=== PATIENT | male | born 1960 | race Caucasian/White ===

== ENCOUNTER 2020-06-26 15:05 | Inpatient (IN) | payer SELFPAY ==
[2020-06-26 15:19] VITALS: BP 212/102; PULSE 66; RESP 18; TEMP 36.7; O2SAT 100; BMI 22.6
--- NOTE | 2020-06-26 15:28 | W.ED.PSYCH ---
HPI - Psych General: Chief Complaint: Psychiatric Symptoms Stated Complaint: SI, AUDITORY HALLUCINATIONS Time Seen by Provider: 06/26/20 15:19 Source: patient and EMS Mode of arrival: EMS Limitations: no limitations History of Present Illness: HPI Narrative: 59-year-old male states he has been having increasing depression and suicidality. Patient states that he feels like dying. He states he also been having auditory hallucinations recently. 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 Patient's been homeless for years and states he does not see a PCP. Patient is hypertensive here and states he has not been to a physician doctor in years and does not know if he has chronic high blood pressure. He has no medical complaints at this time. MD complaint: suicidal ideation Associated symptoms: Reports auditory hallucinations and depression Review of Systems Const: Denies: fever(s), chills, body aches or change in appetite Eyes: Denies: blurry vision or eye discomfort ENMT: Denies: throat pain or dental pain Card: Denies: chest pain Resp: Denies: dyspnea GI: Denies: abdominal pain, nausea, vomiting or diarrhea : Denies: dysuria Musc: Denies: neck pain or back pain Skin/Breast: Denies: rash Neuro: Denies: headache(s) Psych: Reports: depression and auditory hallucinations Lazarus/Lymph: Denies: easy bruising All/Imm: Denies: urticaria Physical Exam Const: COMMON NORMALS: no acute distress and patient oriented x3 GENERAL APPEARANCE: disheveled HENMT: COMMON NORMALS: normocephalic and atraumatic HEAD & SCALP: normocephalic and atraumatic Eye: COMMON NORMALS: Equal, round and reactive pupils present and EOMs intact bilaterally PUPIL: Yes Equal, round and reactive pupils present Neck/C-Spine: COMMON NORMALS: full ROM and supple Chest: COMMONS NORMALS: normal inspection of the chest and normal palpation of entire chest wall Resp: COMMON NORMALS: normal respiratory effort, No retractions, No use of accessory muscles and clear to auscultation bilaterally AUSCULTATION: clear to auscultation bilaterally Cardio: COMMON NORMALS: regular rate, regular rhythm and No murmurs present (Cardio) RATE: regular rate RHYTHM: regular rhythm GI: COMMON NORMALS: Normal to inspection, nondistended, normoactive bowel sounds present, Soft to palpation, non-tender and no masses PALPATION: Yes Soft to palpation Extremity: COMMON NORMALS: normal to inspection and full ROM Neuro: COMMON NORMALS: patient oriented x3, moves all extremities and no focal motor deficits Psych: COMMON NORMALS: mental status grossly normal, Normal thought process present and cooperative THOUGHT PROCESS: Normal thought process present THOUGHT CONTENT: Yes Suicidality present and Yes Hallucination(s) present Skin: COMMON NORMALS: no rashes or lesions noted and no wounds GENERAL SKIN EXAM: no rashes or lesions noted MDM - Psych MDM Narrative: Medical decision making narrative: Patient presents here with suicidal ideation along with auditory hallucinations. Patient is voluntarily wanting to be admitted. Patient is medically cleared. He was hypertensive when he arrived and is likely chronic in nature. I spoke to psychiatrist and will admit. I gave patient hydralazine and lisinopril his blood pressure is now 141/76. His blood pressure spike was asymptomatic and I believe it is chronic. Lab Data: Labs: Lab Results 06/26/20 06/26/20 06/26/20 Range/Units 15:45 15:49 15:49 WBC 10.5 H (4.0-10.0) 10^3/ uL RBC 5.76 H (4.1-5.3) 10^6/u L Hgb 15.3 (11.7-16.6) g/dL Hct 49.1 (42.0-52.0) % MCV 85.2 (80-94) fL MCH 26.6 L (28.0-34.0) pg MCHC 31.2 (30.0-36.0) g/dL RDW 15.9 H (12.1-15.1) % Plt Count 176 (130-400) 10^3/c mm MPV 10.8 H (7.4-10.4) fL Neut % (Auto) 78.3 % Lymph % (Auto) 17.5 % [place] % (Auto) 3.1 % Eos % (Auto) 0.5 % Baso % (Auto) 0.3 % Neut # (Auto) 8.21 H (1.8-7.7) 10^3/u L Lymph # (Auto) 1.8 (0.8-4.8) 10^3/u L [place] # (Auto) 0.3 (0.2-0.9) 10^3/u L Eos # (Auto) 0.1 (0.0-0.8) 10^3/u L Baso # (Auto) 0.0 (0.0-0.1) 10^3/u L Nucleated RBC % (a uto) 0 % Nucleated RBCs # 0.0 /100WBC Sodium 135 L (136-145) mmol/L Potassium 5.5 H (3.5-5.1) mmol/L Chloride 102 (98-107) mmol/L Carbon Dioxide 22 (22-29) mmol/L Anion Gap 16.5 (5-19) BUN 7 (6-20) mg/dL Creatinine 0.8 (0.7-1.2) mg/dL GFR Calculation 99.3 (90-130) mL/min Glucose 91 (65-115) mg/dL Calculated Osmolal ity 278 L (285-295) mOsm/k g Calcium 9.5 (8.5-10.5) mg/dL Total Bilirubin 0.4 (0.15-1.2) mg/dL AST 17 (0-40) U/L ALT 9 (0-41) U/L Alkaline Phosphata se 69 (40-130) IU/L Total Protein 8.2 (6.6-8.7) g/dL Albumin 4.6 (3.5-5.2) g/dL Globulin 3.6 (1.3-4.6) g/dL Salicylates < 0.3 L (3-10) mg/dL Urine Opiates Scre en Negative (Negative) ng/mL Acetaminophen < 5.0 L (10-30) ug/mL Ur Barbiturates Sc reen Negative (Negative) ng/mL Ur Phencyclidine S crn Negative (Negative) ng/mL Ur Amphetamines Sc reen Negative (Negative) ng/mL U Benzodiazepines Scrn Negative (Negative) ng/mL Urine Cocaine Scre en Negative (Negative) ng/mL U Marijuana (THC) Screen Positive H (Negative) ng/mL Ethyl Alcohol < 10 (0-10) mg/dL Coding Level of Care Code ED Process Improvement Engineer for Chg Fwd Exam Comprehensive
[2020-06-26 15:53] LABS: Basophils % 0.3 %; Eosinophils # 0.1 10^3/uL (0.0-0.8); Eosinophils % 0.5 %; Hematocrit 49.1 % (42.0-52.0); Hemoglobin 15.3 g/dL (11.7-16.6); Lymphocytes # 1.8 10^3/uL (0.8-4.8); Lymphocytes % 17.5 %; Mean Corpuscular HGB Conc 31.2 g/dL (30.0-36.0); Mean Corpuscular Hemoglobin 26.6 pg (28.0-34.0); Mean Corpuscular Volume 85.2 fL (80-94); Mean Platelet Volume 10.8 fL (7.4-10.4); Monocytes # 0.3 10^3/uL (0.2-0.9); Monocytes % 3.1 %; Neutrophils # 8.21 10^3/uL (1.8-7.7); Neutrophils % 78.3 %; Nucleated Red Blood Cells % 0 %; Platelet Count 176 10^3/cmm (130-400); Red Blood Count 5.76 10^6/uL (4.1-5.3); Red Cell Distribution Width 15.9 % (12.1-15.1); White Blood Count 10.5 10^3/uL (4.0-10.0)
[2020-06-26 16:00] VITALS: BP 178/89; PULSE 64; RESP 16; O2SAT 99
[2020-06-26] MEDS: lisinopril 10 mg Tablet 20 MG PO (16:03)
[2020-06-26] MEDS: LORazepam 2 mg Tablet PO (16:03)
[2020-06-26] MEDS: hyDRALAzine 20 mg/mL INJ 1 mL 10 MG IVP (16:07)
[2020-06-26 16:09] LABS: Amphetamines Screen Urine Negative (Negative); Barbiturates Screen Urine Negative (Negative); Benzodiazepines Screen Urine Negative (Negative); Cocaine Screen Urine Negative (Negative); Opiate Screen Urine Negative (Negative); PCP Screen Urine Negative (Negative); THC Screen Urine Positive (Negative)
--- NOTE | 2020-06-26 16:09 | PC.NURSE ---
1:1 SITTER AT BEDSIDE WITH PT.
[2020-06-26 16:13] LABS: Alanine Aminotransferase 9 U/L (0-41); Albumin Level 4.6 g/dL (3.5-5.2); Alkaline Phosphatase 69 IU/L (40-130); Anion Gap 16.5 (5-19); Aspartate Amino Transferase 17 U/L (0-40); Blood Urea Nitrogen 7 mg/dL (6-20); Calcium 9.5 mg/dL (8.5-10.5); Carbon Dioxide 22 mmol/L (22-29); Chloride 102 mmol/L (98-107); Creatinine Clr Calc Pharmacy 90.6573; Globulin 3.6 g/dL (1.3-4.6); Glomerular Filtration Rate 99.3 mL/min (90-130); Glucose 91 mg/dL (65-115); Osmolality Calculated 278 mOsm/kg (285-295); Potassium 5.5 mmol/L (3.5-5.1); Sodium 135 mmol/L (136-145); Total Bilirubin 0.4 mg/dL (0.15-1.2); Total Protein 8.2 g/dL (6.6-8.7)
[2020-06-26 16:15] LABS: Acetaminophen < 5.0 ug/mL (10-30); Alcohol Level < 10 mg/dL (0-10); Salicylate < 0.3 mg/dL (3-10)
[2020-06-26 17:00] VITALS: BP 127/76; PULSE 73; RESP 16; O2SAT 96
[2020-06-26 17:06] VITALS: BP 137/87; PULSE 65; RESP 20; TEMP 37.1; O2SAT 99
--- NOTE | 2020-06-26 19:50 | PC.NURSE ---
BP is hypotensive. Alert and oriented. Encouraging PO fluids.
[2020-06-26 20:12] VITALS: BP 110/70; PULSE 71; RESP 20; TEMP 36.2; O2SAT 99
--- NOTE | 2020-06-26 20:22 | PC.NURSE ---
pt being observed closely due to bp issues both in the ER and here on the unit.
[2020-06-27 06:00] VITALS: BP 110/68; PULSE 63; RESP 19; TEMP 37; O2SAT 98
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
[2020-06-27 13:33] VITALS: BP 123/76; PULSE 62; RESP 18; TEMP 36.8; O2SAT 98
[2020-06-27 19:38] VITALS: BP 138/64; PULSE 60; RESP 17; TEMP 37.1; O2SAT 89
[2020-06-27] MEDS: OLANZapine 5 mg ODT PO (20:45)
[2020-06-28 06:00] VITALS: BP 181/95; PULSE 62; RESP 16; TEMP 36.4; O2SAT 97
[2020-06-28 13:16] VITALS: BP 199/88; PULSE 49; RESP 18; TEMP 36.6; O2SAT 100
--- NOTE | 2020-06-28 14:05 | P.PN_ITS ---
Subjective NPU Subjective: Interval history: The patient says he is not doing well. His auditory hallucinations take the form of voices which argue with each other as to whether he should live or . He is not on a large dose of antipsychotic, which will be increased. Also, he is not on an antidepressant and he is depressed. This has been such a longstanding problem that, failing efforts at pharmacotherapy and millieu, which latter is less likely to be helpful in light of his profound hearing impairment, I would like to at least consider ketamine as an alternative approach. This man is desperately depressed and suicidal. Medications: Reviewed: Yes Medication Review Details: Current Medications Acetaminophen (Tylenol) 650 mg PO Q4H PRN PRN Reason: MILD PAIN Benztropine Mesylate (Cogentin) 1 mg PO BID PRN PRN Reason: Mild Extrapyramidal symptoms Camphor/Menthol/Phenol (Blistex) 1 applic TOPICAL Q1H PRN PRN Reason: DRYNESS Diphenhydramine HCl (Benadryl) 50 mg IM ONCE PRN PRN Reason: Severe Extrapyramidal Symptoms Diphenhydramine HCl (Benadryl) 50 mg IM Q4H PRN PRN Reason: Severe Aggression Haloperidol (Haldol) 5 mg PO Q4H PRN PRN Reason: AGITATION Haloperidol Lactate (Haldol Inj) 5 mg IM Q4H PRN PRN Reason: Severe Aggression Hydroxyzine Pamoate (Vistaril) 50 mg PO Q6H PRN PRN Reason: ANXIETY Loperamide HCl (Imodium Capsule) 2 mg PO Q6H PRN PRN Reason: DIARRHEA Lorazepam (Ativan) 2 mg IM Q4H PRN PRN Reason: Severe Aggression Nicotine (Nicoderm 21 Mg Patch) 1 patch TRANSDERMA DAILY PRN PRN Reason: NICOTINE WITHDRAWAL Nicotine Polacrilex (Nicorette) 2 mg BUCCAL Q2H PRN PRN Reason: NICOTINE WITHDRAWAL Non-Formulary Medication (Naproxen Sodium [Aleve]) 220 mg PO PRN PRN PRN Reason: PAIN Olanzapine (Zyprexa Zydis) 5 mg PO Q4H PRN PRN Reason: Agitation/Psychosis Olanzapine (Zyprexa Zydis) 10 mg PO BEDTIME ASIF Ondansetron HCl (Zofran) 4 mg PO Q6H PRN PRN Reason: NAUSEA AND VOMITING Sertraline HCl (Zoloft) 50 mg PO DAILY ASIF Trazodone HCl (Desyrel) 50 mg PO BEDTIME PRN PRN Reason: SLEEP Mental Status Exam MSE Comments: This is an obviously physically impaired male who presents at his stated age. He is a bit scruffy in keeping with his homeless status. Mood is despondent and affect is flat. Thought processes, however, what little I could elicit, are integrated and free of racing, blocking or looseness of association. Speech is of normal rate and volume, without dysarthria, aprosody or pressure. Cognitive functions appear to be within normal range and insight and judgment appear to be intact. They were all di fficult to assess in light of the fact that he is quite hearing impaired and could barely hear me. There were no odd behaviors. He acknowledges suicidal thoughts but has no intent or impulse to hurt himself or anyone here on the unit. Vitals/I&O/Wt Last Vital Signs Temp 97.8 F 06/28/20 13:16 Pulse 49 L 06/28/20 13:16 Resp 18 06/28/20 13:16 BP 199/88 06/28/20 13:16 Pulse Ox 100 06/28/20 13:16 Weight last 48 hrs Weight 140 lb Data NPU : 06/26/20 15:49 06/26/20 15:49 A&P Assessment and plan (1) Major depression with psychotic features: Involvement in [facility]. Monitoring, management of antipsychotic and antidepressant pharmacotherapy. Aggressive discharge planning Status: Acute Involuntary Hold Information 96 Hour Hold: 96 Hour Involuntary Admission: No Attestations NPU Medical Necessity Statement*: I anticipate 7-10 midnights additional hospitalization. Time Spent in Patient Care: Greater than 35 minutes (>than 50% of time spent in counselling and/or direct pt care on unit) . 50 minutes Coding Level of Care Code Acute Paediatrician for Cristpoher Mc Diagnoses Major depression with psychotic features F32.3
[2020-06-28 20:05] VITALS: BP 180/75; PULSE 53; RESP 16; TEMP 36.7; O2SAT 100
[2020-06-28] MEDS: OLANZapine 5 mg ODT 10 MG PO (21:19)
[2020-06-29 06:00] VITALS: BP 167/2; PULSE 52; RESP 17; TEMP 36.7; O2SAT 98
[2020-06-29] MEDS: sertraline 50 mg Tablet PO (08:40)
--- NOTE | 2020-06-29 10:01 | P.PN_ITS ---
Subjective NPU Subjective: Interval history: The patient freely discusses his social circumstances which in fact are somewhat difficult. He needs sees no solutions to his problems of being unemployed, and over thousand miles from his home. He has no social support in this area. He has no way of getting back to his home in [place]. He feels like he can still work and would like to get a job. At the same time, he feels desponded and that there really is no hope for him. He is tolerating the medication well. Medications: Medication Review Details: Current Medications Acetaminophen (Tylenol) 650 mg PO Q4H PRN PRN Reason: MILD PAIN Benztropine Mesylate (Cogentin) 1 mg PO BID PRN PRN Reason: Mild Extrapyramidal symptoms Camphor/Menthol/Phenol (Blistex) 1 applic TOPICAL Q1H PRN PRN Reason: DRYNESS Diphenhydramine HCl (Benadryl) 50 mg IM ONCE PRN PRN Reason: Severe Extrapyramidal Symptoms Diphenhydramine HCl (Benadryl) 50 mg IM Q4H PRN PRN Reason: Severe Aggression Haloperidol (Haldol) 5 mg PO Q4H PRN PRN Reason: AGITATION Haloperidol Lactate (Haldol Inj) 5 mg IM Q4H PRN PRN Reason: Severe Aggression Hydroxyzine Pamoate (Vistaril) 50 mg PO Q6H PRN PRN Reason: ANXIETY Loperamide HCl (Imodium Capsule) 2 mg PO Q6H PRN PRN Reason: DIARRHEA Lorazepam (Ativan) 2 mg IM Q4H PRN PRN Reason: Severe Aggression Nicotine (Nicoderm 21 Mg Patch) 1 patch TRANSDERMA DAILY PRN PRN Reason: NICOTINE WITHDRAWAL Nicotine Polacrilex (Nicorette) 2 mg BUCCAL Q2H PRN PRN Reason: NICOTINE WITHDRAWAL Non-Formulary Medication (Naproxen Sodium [Aleve]) 220 mg PO PRN PRN PRN Reason: PAIN Olanzapine (Zyprexa Zydis) 5 mg PO Q4H PRN PRN Reason: Agitation/Psychosis Olanzapine (Zyprexa Zydis) 10 mg PO BEDTIME ASIF Ondansetron HCl (Zofran) 4 mg PO Q6H PRN PRN Reason: NAUSEA AND VOMITING Sertraline HCl (Zoloft) 50 mg PO DAILY ASIF Trazodone HCl (Desyrel) 50 mg PO BEDTIME PRN PRN Reason: SLEEP Mental Status Exam MSE Comments: Mental Status Exam: The patient is alert interpersonally engaged man appearing approximately his stated age. Eye contact is good. He is believed to be a reliable informant to the best of his ability. Information provided is internally consistent and consistent with that in the chart. Appearance: hygiene is fair; no gross neurological deficits., gait is unremark able; AIMS=0 Speech: Speech is of normal rate and rhythm and easily understood. Thought processes: Thought processes are abstract. Judgment is adequate for safety. Associations: intact Psychotic processes: There is no indication of guarding or paranoia. There is no attention to the internal stimuli. Auditory and visual hallucinations are denied. Judgment: Insight is fair. Problem solving skills are adequate for safety. Orientation: The patient is oriented to person, place time and situation. Memory: no deficits noted in immediate, intermediate, or remote spheres. Attention: The patient is alert and interpersonally engaged. Language: Verbalizations are coherent. Fund of knowledge: Fund of knowledge is adequate. Affect/Mood: Affect is consistent with a depressed mood. pt denies suicidal ideation Affective range appropriate. Psychosis: perception unimpaired except through cognitive distortion; reality testing intact. Cognition: Patient Appearance: Disheveled/Poor Hygiene Level of Consciousness: Awake, Alert, Appropriate and Follows Commands Patient Cognition Impaired: Yes Ability to Follow Directions: Fair Patient Orientation (long list): Person, Name, Age and Birthday Comprehension Ability: Moderate Impairment Hallucination Type: Auditory and Visual Delusion Description: Not Present Thought Process: Appropriate Affect: Affect Description: Appropriate Depressive Symptoms: Feelings of Worthlessness, Hopelessness, Low Self Esteem and Unhappiness Behavior: Patient Behavior: Appropriate Speech Pattern: Clear Vitals/I&O/Wt Last Vital Signs Temp 98.1 F 06/29/20 06:00 Pulse 52 L 06/29/20 06:00 Resp 17 06/29/20 06:00 BP 167/2 06/29/20 06:00 Pulse Ox 98 06/29/20 06:00 Data NPU : 06/26/20 15:49 06/26/20 15:49 A&P Assessment and plan (1) Major depression with psychotic features: Involvement in [facility]. Monitoring, management of antipsychotic and antidepressant pharmacotherapy. Aggressive discharge planning Status: Acute Additional A&P Information Diagnoses: Major depression?single episode, severe Assessment: The hallucinations that he is reporting are more likely to be his internal thought processes unknown expression of his feelings of hopelessness and being overwhelmed as part of his social situation and depression. He was encouraged to maintain participation in the treatment program especially with regard to medications. He was encouraged to have some patients into the therapeutic efficacy of the medication and his ability to find solutions to his problems that he may not be able to see at this time. Given his financial circumstances, treatment with ketamine or transcranial magnetic stimulation, which would be effective interventions, are likely out of his reach. It is also noted that there is no provider for these treatments within a 100 mile radius. Treatment plan: Due to the psychiatric conditions and treatment listed in the Assessment and Plan - the patient requires continued hospitalization. Will provide a safe and therapeutic environment for patient.. Will continue inpatient treatment to allow for medication adjustment and monitoring. Will continue q15 min safety checks. Hospital day #3: Continue sertraline 50 mg daily. Will replace the Zyprexa 10 mg at bedtime with risperidone 1 mg at bedtime and trazodone 100 mg at bedtime. Monitor patient's mood, sleep, appetite, and behavior closely. Encourage patient to participate in individual and group therapeutic sessions on the [place]. Estimated length of stay 5 days The expected benefits and potential side effects of patient's psychiatric medications were discussed with the patient. The patient understands and consents to treatment.CRITERIA FOR DISCHARGE: stable on medications and no longer an imminent risk Involuntary Hold Information 96 Hour Hold: 96 Hour Involuntary Admission: No Attestations NPU Medical Necessity Statement*: Patient will remain in the hospital another 2-4 nights for assessment of medication efficacy and tolerability. Coding Level of Care Code Acute Pay Station Collector for Cristopher Mc Diagnoses Major depression with psychotic features F32.3
[2020-06-29 12:39] VITALS: BP 167/2; PULSE 52; RESP 17; TEMP 36.7; O2SAT 98
[2020-06-29 12:43] VITALS: BP 167/2; PULSE 52; RESP 17; TEMP 36.7; O2SAT 98
--- NOTE | 2020-06-29 12:49 | P.DS_ITS ---
Diagnoses at Discharge Discharge Diagnosis (1) Major depression with psychotic features: Status: Resolved Problem details: This is not a permanent situation and may be treatable Reason for Visit Reason for Visit: SI, AUDITORY HALLUCINATIONS Brief History: YUMI MUNOZ is a 59 year old male who says he has been having increasing depression and suicidality. Patient states that he feels like dying. He has also been having auditory hallucinations for the last 2-1/2 weeks. There are several voices, none of whom he recognizes. He had a similar psychotic break in 1994. He does not recall any treatment that was helpful and has not been on an antipsychotic. Patient's been homeless for years and states he does not see a PCP. Hospital Course Hospital Course DG: Major depression with psychotic features: Admission evaluation: The patient says he is not doing well. His auditory hallucinations take the form of voices which argue with each other as to whether he should live or . He is not on a large dose of antipsychotic, which will be increased. Also, he is not on an antidepressant and he is depressed. This has been such a longstanding problem that, failing efforts at pharmacotherapy and millieu, which latter is less likely to be helpful in light of his profound hearing impairment, I would like to at least consider ketamine as an alternative approach. This man is desperately depressed and suicidal. Hospital day #3: The patient freely discusses his social circumstances which in fact are somewhat difficult. He needs sees no solutions to his problems of being unemployed, and over thousand miles from his home. He has no social support in this area. He has no way of getting back to his home in [place]. He feels like he can still work and would like to get a job. At the same time, he feels desponded and that there really is no hope for him. He is tolerating the medication well. Hospital day #4: Assessment: The hallucinations that he is reporting are more likely to be his internal thought processes unknown expression of his feelings of hopelessness and being overwhelmed as part of his social situation and depression. He was encouraged to maintain participation in the treatment program especially with regard to medications. He was encouraged to have some patients into the therapeutic efficacy of the medication and his ability to find solutions to his problems that he may not be able to see at this time. Given his financial circumstances, treatment with ketamine or transcranial magnetic stimulation, which would be effective interventions, are likely out of his reach. It is also noted that there is no provider for these treatments within a 100 mile radius. PLAN: Continue sertraline 50 mg daily. Will replace the Zyprexa 10 mg at bedtime with risperidone 1 mg at bedtime and trazodone 100 mg at bedtime. Patient later was in agreement to placement at the [facility] homeless program with discharge ALVARO to facilitate before weekend. Involuntary Hold Information 96 Hour Hold: 96 Hour Involuntary Admission: No Mental Status Exam MSE Comments: Discharge Mental Status Exam: Appearance: hygiene is good; no gross neurological deficits., gait is unremarkable; AIMS=0 Speech: Speech is of normal rate and rhythm and easily understood. Thought processes: Thought processes are abstract. Judgment is adequate for safety. Associations: intact Psychotic processes: There is no indication of guarding or paranoia. There is no attention to the internal stimuli. Auditory and visual hallucinations are denied. Judgment: Insight is fair. Problem solving skills are adequate for safety. Orientation: The patient is oriented to person, place time and situation. Memory: no deficits noted in immediate, intermediate, or remote spheres. Attention: The patient is alert and interpersonally engaged. Language: Verbalizations are coherent. Fund of knowledge: Fund of knowledge is adequate. Affect/Mood: Affect is consistent with a euthymic mood. denied suicidal ideation Affective range is appropriate. Psychosis: perception unimpaired except through cognitive distortion; reality testing intact. Discharge Data Vitals: Last Vital Signs Temp 98.1 F 06/29/20 12:43 Pulse 52 L 06/29/20 12:43 Resp 17 06/29/20 12:43 BP 167/2 06/29/20 12:43 Pulse Ox 98 06/29/20 12:43 Discharge Plan Discharge Patient Disposition: Home Condition: Stable Prescriptions: New trazodone 100 mg Tablet 100 mg PO BEDTIME Qty: 30 RF: 4 sertraline 50 mg Tablet 50 mg PO DAILY Qty: 30 RF: 4 risperidone 1 mg Tablet 1 mg PO BEDTIME Qty: 30 RF: 4 Naproxen Sodium 220 mg PO PRN Qty: 30 RF: 1 Discontinued naproxen sodium [Aleve] 220 mg Tablet 1,100 mg PO PRN RF: 0 Discharge Orders: Discharge Order (Routine); Ordered 06/29/20 Ordered By: Toney Colon Referrals: [facility] [Other] (this is the senior living where you can stay at least stay for 30 days. They do offer assistance to help with housing needs. ) Patient Instructions: Naproxen (By mouth), Trazodone (By mouth), Sertraline (By mouth), Risperidone (By mouth), Depression (DC), Anxiety (DC) Discharge Attestations NPU Time Spent in Discharge Care*: greater than 30 min Coding Level of Care Code Acute Litigation Manager for Cristopher Mc Diagnoses Major depression with psychotic features F32.3
== END 2020-06-29 14:21 | disposition home or self-care (01) | DRG 885 ==
LOC: ER 16:51 → NP 16:53
PROVIDERS: Emergency Medicine; Admitting Provider Psychiatry & Neurology Psychiatry; Emergency Provider Psychiatry & Neurology Psychiatry; Visit Provider Psychiatry & Neurology Psychiatry
DX: F32.3 Major depressive disorder, single episode, severe with psychotic features (principal); R45.851 Suicidal ideations
CPT/HCPCS: 12345; 36415; 80053; 80306; 80307; 85025; 96375; 99284; J0360

== ENCOUNTER 2020-08-09 10:30 | Inpatient (IN) | payer SELFPAY ==
[2020-08-09 10:48] VITALS: BP 136/84; PULSE 71; RESP 18; TEMP 36.6; O2SAT 99; BMI 21.7
--- NOTE | 2020-08-09 11:12 | ED_ITS ---
HPI - Back Pain/Injury General: Chief Complaint: Back Pain/Injury Stated Complaint: back and knee pain Time Seen by Provider: 08/09/20 10:52 Source: patient Mode of arrival: ambulatory Limitations: no limitations History of Present Illness: HPI Narrative: 59-year-old male states he has chronic back and knee pain since he was in high school. He states that he has been having worsening back pain over 10 years. Denies any recent injuries. He states pain is a 5 out of 10. Denies any vomiting or diarrhea. He denies any SI or HI. Denies any chest pain. Associated symptoms: Deny abdominal pain, chills, dysuria, fever(s), nausea or vomiting Review of Systems Const: Denies: fever(s), chills, body aches or change in appetite Eyes: Denies: blurry vision or eye discomfort ENMT: Denies: throat pain or dental pain Card: Denies: chest pain Resp: Denies: dyspnea GI: Denies: abdominal pain, nausea, vomiting or diarrhea : Denies: dysuria Musc: Reports: back pain and joint pain Skin/Breast: Denies: rash Neuro: Denies: headache(s) Psych: Denies: depression Lazarus/Lymph: Denies: easy bruising All/Imm: Denies: urticaria Physical Exam Const: COMMON NORMALS: no acute distress, patient oriented x3 and healthy appearing HENMT: COMMON NORMALS: normocephalic and atraumatic HEAD & SCALP: normocephalic and atraumatic Eye: COMMON NORMALS: Equal, round and reactive pupils present and EOMs intact bilaterally PUPIL: Yes Equal, round and reactive pupils present Neck/C-Spine: COMMON NORMALS: full ROM and supple Chest: COMMONS NORMALS: normal inspection of the chest and normal palpation of entire chest wall Resp: COMMON NORMALS: normal respiratory effort, No retractions, No use of accessory muscles and clear to auscultation bilaterally AUSCULTATION: clear to auscultation bilaterally Cardio: COMMON NORMALS: regular rate, regular rhythm and No murmurs present (Cardio) RATE: regular rate RHYTHM: regular rhythm GI: COMMON NORMALS: Normal to inspection, nondistended, normoactive bowel sounds present, Soft to palpation, non-tender and no masses PALPATION: Yes Soft to palpation Extremity: COMMON NORMALS: normal to inspection and full ROM Neuro: COMMON NORMALS: patient oriented x3, moves all extremities and no focal motor deficits Psych: COMMON NORMALS: mental status grossly normal, Normal thought process present and cooperative THOUGHT PROCESS: Normal thought process present Skin: COMMON NORMALS: no rashes or lesions noted and no wounds GENERAL SKIN EXAM: no rashes or lesions noted Course Vital Signs: Vital signs: Vital Signs Temperature 97.9 F 08/09/20 10:48 Pulse Rate 71 08/09/20 10:48 Respiratory Rate 18 08/09/20 10:48 Blood Pressure 136/84 08/09/20 10:48 Pulse Oximetry 99 08/09/20 10:48 MDM - Back Pain/Injury MDM Narrative: Medical decision making narrative: Patient presents with low back pain and knee pain that is chronic in nature. He is well-appearing here and has no signs of acute injury. His exam here is benign. Patient is stable for discharge and follow-up with PCP and return if worsening. Upon discharge patient is now claiming that he is hearing voices and is having thoughts of killing himself. Patient states he wants to go to the psych unit. We will get medical clearance and plan on admitting him to the MPU. Patient is medically cleared I spoke to Dr. Reyna and will admit to the psychiatric unit. Lab Data: Labs: Lab Results 08/09/20 Range/Units 13:00 WBC 6.3 (4.0-10.0) 10^3/ uL RBC 5.33 H (4.1-5.3) 10^6/u L Hgb 14.8 (11.7-16.6) g/dL Hct 45.6 (42.0-52.0) % MCV 85.6 (80-94) fL MCH 27.8 L (28.0-34.0) pg MCHC 32.5 (30.0-36.0) g/dL RDW 15.7 H (12.1-15.1) % Plt Count 162 (130-400) 10^3/c mm MPV 10.8 H (7.4-10.4) fL Neut % (Auto) 63.6 % Lymph % (Auto) 27.0 % Stanley % (Auto) 6.6 % Eos % (Auto) 2.2 % Baso % (Auto) 0.3 % Neut # (Auto) 4.03 (1.8-7.7) 10^3/u L Lymph # (Auto) 1.7 (0.8-4.8) 10^3/u L Stanley # (Auto) 0.4 (0.2-0.9) 10^3/u L Eos # (Auto) 0.1 (0.0-0.8) 10^3/u L Baso # (Auto) 0.0 (0.0-0.1) 10^3/u L Nucleated RBC % (a uto) 0 % Nucleated RBCs # 0.0 /100WBC Imaging Data^: CT Head: Radiologist's impression: [place] [address] CT Scan Report Signed Patient: YUMI MUNOZ Unit #: [id number] : 1960 Age/Sex: 59 / M ADM Date: 08/09/20 Loc: ER Room/Bed: Attending Dr: Ordering Provider/Ordering MD: Toni Nash MD Date of Service: 08/09/20 Procedure(s): CT head wo con* [id number] Accession Number(s): [id number] Report Number: [id number] PROCEDURE INFORMATION: Exam: CT Head Without Contrast Exam date and time: 08/09/2020 11:44 AM Age: 59 years old Clinical indication: Altered mental status/memory loss; Additional info: Hallucinations TECHNIQUE: Imaging protocol: Computed tomography of the head without contrast. Radiation optimization: All CT scans at this facility use at least one of these dose optimization techniques: automated exposure control; mA and/or kV adjustment per patient size (includes targeted exams where dose is matched to clinical indication); or iterative reconstruction. COMPARISON: No relevant prior studies available. RADIATION DOSE METRICS: Total DLP (mGy-cm): 742.83 FINDINGS: Brain: Normal. No hemorrhage. Unremarkable white matter. No mass effect. Cerebral ventricles: No ventriculomegaly. Bones/joints: Unremarkable. No acute fracture. Paranasal sinuses: There is opacification of left anterior ethmoid air cells. There is opacification of the incompletely imaged left maxillary sinus. Mastoid air cells: Visualized mastoid air cells are well aerated. Soft tissues: Unremarkable. CT/CT head wo con* [id number] IMPRESSION: No acute hemorrhage or edema. Discharge Plan Discharge Patient Disposition: Admitted As Inpatient Clinical Impression: Suicidal ideation Chronic back pain Qualifiers: Back pain location: low back pain Back pain laterality: right Sciatica presence: without sciatica Qualified Code(s): M54.5 - Low back pain Condition: Stable Discharge Diet: Advance as tolerated Discharge Activity: Resume usual activity Coding Level of Care Code ED Cured Meats Supervisor for Cristopher Fwd Exam Comprehensive
--- NOTE | 2020-08-09 11:12 | PC.NURSE ---
Pt is able to answer orientation questions correctly, pt states he is at [facility] in [place], pt correctly states the month and year as well as his own name and birthday.
[2020-08-09] MEDS: ketorolac 30 mg/mL INJ IM (11:35)
--- NOTE | 2020-08-09 11:42 | CTR_ITS ---
PROCEDURE INFORMATION: Exam: CT Head Without Contrast Exam date and time: 08/09/2020 11:44 AM Age: 59 years old Clinical indication: Altered mental status/memory loss; Additional info: Hallucinations TECHNIQUE: Imaging protocol: Computed tomography of the head without contrast. Radiation optimization: All CT scans at this facility use at least one of these dose optimization techniques: automated exposure control; mA and/or kV adjustment per patient size (includes targeted exams where dose is matched to clinical indication); or iterative reconstruction. COMPARISON: No relevant prior studies available. RADIATION DOSE METRICS: Total DLP (mGy-cm): 742.83 FINDINGS: Brain: Normal. No hemorrhage. Unremarkable white matter. No mass effect. Cerebral ventricles: No ventriculomegaly. Bones/joints: Unremarkable. No acute fracture. Paranasal sinuses: There is opacification of left anterior ethmoid air cells. There is opacification of the incompletely imaged left maxillary sinus. Mastoid air cells: Visualized mastoid air cells are well aerated. Soft tissues: Unremarkable. CT/CT head wo con* [id number] IMPRESSION: No acute hemorrhage or edema. Radiation Dose CTDIVOL = (mGy): DLP = 742.83 (mGy-cm)
[2020-08-09 13:14] LABS: Basophils % 0.3 %; Eosinophils # 0.1 10^3/uL (0.0-0.8); Eosinophils % 2.2 %; Hematocrit 45.6 % (42.0-52.0); Hemoglobin 14.8 g/dL (11.7-16.6); Lymphocytes # 1.7 10^3/uL (0.8-4.8); Mean Corpuscular HGB Conc 32.5 g/dL (30.0-36.0); Mean Corpuscular Hemoglobin 27.8 pg (28.0-34.0); Mean Corpuscular Volume 85.6 fL (80-94); Mean Platelet Volume 10.8 fL (7.4-10.4); Monocytes # 0.4 10^3/uL (0.2-0.9); Monocytes % 6.6 %; Neutrophils # 4.03 10^3/uL (1.8-7.7); Neutrophils % 63.6 %; Nucleated Red Blood Cells % 0 %; Platelet Count 162 10^3/cmm (130-400); Red Blood Count 5.33 10^6/uL (4.1-5.3); Red Cell Distribution Width 15.7 % (12.1-15.1); White Blood Count 6.3 10^3/uL (4.0-10.0)
[2020-08-09 13:39] LABS: Alanine Aminotransferase 13 U/L (0-41); Albumin Level 4.4 g/dL (3.5-5.2); Alkaline Phosphatase 71 IU/L (40-130); Anion Gap 13.1 (5-19); Aspartate Amino Transferase 18 U/L (0-40); Blood Urea Nitrogen 12 mg/dL (6-20); Calcium 9.7 mg/dL (8.5-10.5); Carbon Dioxide 27 mmol/L (22-29); Chloride 103 mmol/L (98-107); Globulin 3.2 g/dL (1.3-4.6); Glomerular Filtration Rate 138.4 mL/min (90-130); Glucose 90 mg/dL (65-115); Osmolality Calculated 285 mOsm/kg (285-295); Potassium 5.1 mmol/L (3.5-5.1); Sodium 138 mmol/L (136-145); Total Bilirubin 0.3 mg/dL (0.15-1.2); Total Protein 7.6 g/dL (6.6-8.7)
[2020-08-09 13:41] LABS: Acetaminophen < 5.0 ug/mL (10-30); Alcohol Level < 10 mg/dL (0-10); Salicylate < 0.3 mg/dL (3-10)
[2020-08-09 14:24] VITALS: BP 140/90; PULSE 75; RESP 20; O2SAT 100
[2020-08-09 14:44] VITALS: BP 110/75; PULSE 58; RESP 18; TEMP 36.4; O2SAT 97
[2020-08-09 22:00] VITALS: BP 129/78; PULSE 53; RESP 16; TEMP 36.9; O2SAT 99
[2020-08-10 05:59] VITALS: BP 104/62; PULSE 64; RESP 16; TEMP 36.4; O2SAT 96
[2020-08-10 08:45] LABS: Amphetamines Screen Urine Negative (Negative); Barbiturates Screen Urine Negative (Negative); Benzodiazepines Screen Urine Negative (Negative); Cocaine Screen Urine Negative (Negative); Opiate Screen Urine Negative (Negative); PCP Screen Urine Negative (Negative); THC Screen Urine Negative (Negative)
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
[2020-08-10 14:00] VITALS: BP 150/82; PULSE 63; RESP 16; TEMP 36.4; O2SAT 97
[2020-08-10 20:09] VITALS: BP 120/69; PULSE 53; RESP 14; TEMP 36.5; O2SAT 97
[2020-08-11 06:00] VITALS: BP 135/53; PULSE 64; RESP 16; TEMP 36.6; O2SAT 96
[2020-08-11] MEDS: fluoxetine 20 mg Capsule PO (08:15)
[2020-08-11 13:27] VITALS: BP 129/89; PULSE 93; RESP 18; TEMP 36.6
--- NOTE | 2020-08-11 13:56 | P.PN_ITS ---
Subjective NPU Subjective: Interval history: Julio Cesar presents today continuing to struggle with hearing but reporting that he is doing okay on the medication denying any significant side effects. He continues to be quite isolative and to himself. He denied any additional issues reports he is probably too much and eating okay. Mental Status Exam MSE Comments: This is a well-nourished, well-developed white male with hospital scrubs on with limited grooming and adequate eye contact. No abnormal movements except for psychomotor retardation. Cooperative with exam in mild distress. Speech was limited and decreased rate and volume. Mood described as depressed, affect congruent. Thought process organized. Thought content: Patient endorsed suicidal ideation, but denied homicidal ideation, there were no delusions reported are noted, he endorsed occasional auditory hallucinations but denied visual hallucinations. Attention and concentration were limited and memory was mostly reliable but none were formally tested. He is alert and oriented ?3. Insight and judgment are fair, and impulse control is limited. Vitals/I&O/Wt Last Vital Signs Temp 97.8 F 08/11/20 13:27 Pulse 93 08/11/20 13:27 Resp 18 08/11/20 13:27 BP 129/89 08/11/20 13:27 Pulse Ox 96 08/11/20 06:00 Data NPU : 08/09/20 13:00 08/09/20 13:00 A&P Additional A&P Information (1) Suicidal ideation: (2) Depression: (3) Chronic back pain: This is a 59-year-old white male with depression and suicidal ideation against the backdrop of medical comorbidities who presents open to a trial of medication. 1. Continue current medication. 2. Continue every 15 minute checks for safety. 3. Encourage individual, group and milieu therapy. 4. Will attempt to get collateral information from the chart and otherwise. Involuntary Hold Information 96 Hour Hold: 96 Hour Involuntary Admission: No Attestations NPU 2 Medical Necessity Statement*: Inpatient hospitalization is medically necessary and the clinically appropriate intervention at this time. We will monitor medic ations and make changes as indicated. He will be in the hospital for over 2 midnights. Likely length of stay 2-4 days. Coding Level of Care Code Acute Digital Photographer for Cristopher Mc
[2020-08-11 20:36] VITALS: BP 141/79; PULSE 56; RESP 14; TEMP 36.4; O2SAT 97
[2020-08-12 06:00] VITALS: BP 151/77; PULSE 58; RESP 18; TEMP 36.6; O2SAT 96
[2020-08-12] MEDS: fluoxetine 20 mg Capsule PO (08:08)
[2020-08-12] MEDS: acetaminophen 325 mg Tablet 650 MG PO (10:46)
--- NOTE | 2020-08-12 11:10 | P.PN_ITS ---
Subjective NPU Subjective: Interval history: Julio Cesar presents today reporting that feeling a little bit better. Reports plan to continue with treatment after discharge. He denies any side effects of the medication. He reports he is eating and sleeping fine and starting to be a little less isolative. Mental Status Exam MSE Comments: This is a well-nourished, well-developed white male with hospital scrubs on with limited grooming and adequate eye contact. No abnormal movements except for psychomotor retardation. Cooperative with exam in no acute distress. Speech was limited and decreased rate and volume. Mood described as a little better, affect congruent. Thought process organized. Thought content: Patient denied suicidal or homicidal ideation, there were no delusions reported are noted, he endorsed occasional auditory hallucinations but denied visual hallucinations. Attention and concentration were limited and memory was mostly reliable but none were formally tested. He is alert and oriented ?3. Insight and judgment are fair, and impulse control is limited. Vitals/I&O/Wt Last Vital Signs Temp 97.8 F 08/12/20 06:00 Pulse 58 L 08/12/20 06:00 Resp 18 08/12/20 06:00 BP 151/77 08/12/20 06:00 Pulse Ox 96 08/12/20 06:00 Weight last 48 hrs Weight 61.235 kg Data NPU : 08/09/20 13:00 08/09/20 13:00 A&P Additional A&P Information (1) Suicidal ideation: (2) Depression: (3) Chronic back pain: This is a 59-year-old white male with depression and suicidal ideation against the backdrop of medical comorbidities who presents open to a trial of medication. 1. Continue current medication. 2. Continue every 15 minute checks for safety. 3. Encourage individual, group and milieu therapy. 4. Will attempt to get collateral information from the chart and otherwise. Involuntary Hold Information 96 Hour Hold: 96 Hour Involuntary Admission: No Attestations NPU Medical Necessity Statement*: Inpatient hospitalization is medically necessary and the clinically appropriate intervention at this time. We will monitor medications and make changes as indicated. Likely length of stay 1-3 days. Coding Level of Care Code Acute Digital Traffic Coordinator for Cristopher Mc
[2020-08-12 13:42] VITALS: BP 161/79; PULSE 52; RESP 18; TEMP 36.9; O2SAT 95
[2020-08-12 20:24] VITALS: BP 144/77; PULSE 52; RESP 15; TEMP 36.5; O2SAT 98
[2020-08-12] MEDS: hyDROXYzine 25 mg Capsule 50 MG PO (21:03)
[2020-08-12] MEDS: trazodone 50 mg Tablet PO (21:03)
[2020-08-13 06:00] VITALS: BP 156/77; PULSE 51; RESP 17; TEMP 36.8; O2SAT 98
[2020-08-13] MEDS: fluoxetine 20 mg Capsule PO (08:17)
[2020-08-13] MEDS: acetaminophen 325 mg Tablet 650 MG PO (09:46)
[2020-08-13 14:00] VITALS: BP 175/68; PULSE 51; RESP 18; TEMP 36.2; O2SAT 97
--- NOTE | 2020-08-13 17:03 | PM.NPN ---
Subjective NPU Subjective: Interval history: Julio Cesar is stabilizing on antidepressant and reported that he was desiring to restart his risk for gall prior to discharge. We discussed the risk benefits alternatives of making a change and he understood and agreed to proceed as is documented in this note. Additionally he work with social work to get an arrangement for a long term in the morning so we made arrangements for his medication and everything with plans for discharge in the morning. Mental Status Exam MSE Comments: This is a well-nourished, well-developed white male with hospital scrubs on with limited grooming and adequate eye contact. No abnormal movements except for improving psychomotor retardation. Cooperative with exam in no acute distress. Speech was limited and decreased rate and volume. Mood described as a little better, affect congruent. Thought process organized. Thought content: Patient denied suicidal or homicidal ideation, there were no delusions reported or noted, he denied auditory or visual hallucinations. Attention and concentration were improving and memory was mostly reliable but none were formally tested. He is alert and oriented ?3. Insight and judgment are fair, and impulse control is improving. Vitals/I&O/Wt Last Vital Signs Temp 97.2 F L 08/13/20 14:00 Pulse 51 L 08/13/20 14:00 Resp 18 08/13/20 14:00 BP 175/68 08/13/20 14:00 Pulse Ox 97 08/13/20 14:00 Weight last 48 hrs Weight 61.235 kg Data NPU : 08/09/20 13:00 08/09/20 13:00 A&P Additional A&P Information (1) Suicidal ideation: (2) Depression: (3) Chronic back pain: This is a 59-year-old white male with depression and suicidal ideation against the backdrop of medical comorbidities who presents open to a trial of medication. 1. Continue current medication. Restart Risperdal 1 mg p.o. nightly 2. Continue every 15 minute checks for safety. 3. Encourage individual, group and milieu therapy. 4. Plan for discharge in the morning. Involuntary Hold Information 96 Hour Hold: 96 Hour Involuntary Admission: No Attestations NPU Medical Necessity Statement*: Inpatient hospitalization is medically necessary and the clinically appropriate intervention at this time. We will monitor medications and make changes as indicated. Tentative plan for discharge in the morning. 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
[2020-08-13 20:31] VITALS: BP 131/73; PULSE 46; RESP 14; TEMP 36.7; O2SAT 97
[2020-08-13] MEDS: trazodone 50 mg Tablet PO (21:01)
[2020-08-13] MEDS: risperiDONE 1 mg Tablet PO (21:01)
[2020-08-13] MEDS: hyDROXYzine 25 mg Capsule 50 MG PO (21:01)
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
--- NOTE | 2020-08-14 02:17 | PC.NURSE ---
Pt is withdrawn, depressed, and self isolates. He refused snack, does not interact with other patients, and fears leaving the unit. He repeats that he will kill himself if he leaves tomorrow.
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
[2020-08-14 05:52] VITALS: BP 131/73; PULSE 46; RESP 14; TEMP 36.7; O2SAT 97
[2020-08-14 06:00] VITALS: BP 161/85; PULSE 55; RESP 14; TEMP 36.8; O2SAT 95
== END 2020-08-14 07:40 | disposition home or self-care (01) | DRG 881 ==
LOC: ER 13:27 → NP 13:57
PROVIDERS: Admitting Provider Psychiatry & Neurology Psychiatry; Emergency Provider Emergency Medicine; Visit Provider Psychiatry & Neurology Psychiatry
DX: F32.9 Major depressive disorder, single episode, unspecified (principal); R45.851 Suicidal ideations; G89.29 Other chronic pain; M54.5 Low back pain
CPT/HCPCS: 12345; 70450; 80053; 80306; 80307; 85025; 96372; 99281; J1885